=== PATIENT | female | born 1965 | race Two or more races ===

== ENCOUNTER 2020-08-20 09:46 | Day surgery (SDC) | payer OTHER ==
[~2020-08-20 09:46] MED LIST: MULTIPLE VITAM1 EACH PO; OMEGA3 PO; TENORMIN25 MG PO; URSO FORTE500 MG PO
== END 2020-08-20 22:00 | disposition home or self-care (01) ==
LOC: CIR.AMB 09:46
PROVIDERS: ATTEND Specialist
DX: D07.2 Carcinoma in situ of vagina (principal); Z20.822 Contact with and (suspected) exposure to COVID-19